=== PATIENT | female | born 1980 | race Hispanic/Latino ===

== ENCOUNTER 2017-01-15 21:44 | Emergency (ER) | payer OTHER ==
[~2017-01-15 21:44] MED LIST: BACTRIM DS TAB1 EACH PO; GEMFIBROZIL600 M1 PO; HAIR, SKIN & N1 EACH PO; OMEGA-3 ACID ETH1 GM PO; PERCOCET 5-3251 EACH PO; VITAMIN D32000 UNI1 PO
[2017-01-15] MEDS ORDERED: LORADAMED10 MG PO (22:09)
[2017-01-15] MEDS ORDERED: NASACORT16.9 ML NASB (22:10)
[2017-01-15] MEDS ORDERED: VITAMIN B-121000 MC3 PO (22:11)
[2017-01-15] MEDS ORDERED: MIRENA1 EACH (22:11)
[2017-01-15 22:33] LABS: ABSOLUTE BASOPHIL COUNT 0.1 /CUMM (0.0-0.2); ABSOLUTE EOSINOPHIL COUNT 0.7 /CUMM (0.0-0.7); ABSOLUTE MONOCYTE COUNT 0.9 /CUMM (0.10-0.60); EOSINOPHIL % 7.6 % (0-5); WHITE BLOOD CELL COUNT 8.9 /CUMM (4.8-10.8)
--- NOTE | 2017-01-15 22:33 | ED GI/GU/ABDOMINAL COMPLAINT ---
History of Present Illness General Chief Complaint: Abdominal Pain/Flank Pain Stated Complaint: L SIDE FLANK PAIN-HX OF KIDNEY STONES Source: patient Exam Limitations: no limitations Vital Signs & Intake/Output Vital Signs & Intake/Output Vital Signs Date Time Temp Pulse Resp B/P Pulse O2 O2 Flow FiO2 Ox Delivery Rate 01/15 2154 97.7 93 22 112/79 98 ED Intake and Output 01/16 0000 01/15 1200 Intake Total 0 Output Total Balance 0 Intake, Oral 0 Allergies Coded Allergies: hydrocodone (From VICODIN) (Severe, ITCHING 03/09/16) Reconcile Medications Cholecalciferol (Vitamin D3) (Vitamin D3) 2,000 UNIT TABLET 1 CAP PO QAM SUPPLEMENT (Reported) Cyanocobalamin (Vitamin B-12) 1,000 MCG TABLET 1 TAB PO DAILY SUPPLEMENT ( Reported) Gemfibrozil 600 MG TABLET 1 TAB PO BID CHOLESTEROL (Reported) Levonorgestrel (Mirena) 20 MCG/24 HOUR (5 YEARS) IUD CONTROL (Reported) Loratadine (Loradamed) 10 MG TABLET 1 TAB PO DAILY ALLERGIES (Reported) Multivitamin With Minerals (Hair, Skin & Nails) 1 EACH TABLET 1 TAB PO QAM SUPPLEMENT (Reported) [place]-3 Acid Ethyl Esters 1 GM CAPSULE 2 CAP PO BID CHOLESTEROL (Reported) Ondansetron (Zofran Odt) 4 MG TAB.RAPDIS 1 TAB SL TID PRN NAUSEA Triamcinolone Acetonide (Nasacort) 55 MCG SPRAY 1 SPRAY NASB DAILY ALLERGIES (Reported) Triage Note: PER PT HAD FEVER YESTERDAY URINE PRESSURE PAIN TO L FLANK, HX OF KIDNEY STONES, THINK I AM PASSING ANOTHER PAIN X 3 DAYS WORSE TODAY. LMP ABNORMAL D/T IUD PLACED IN OCTOBER. Triage Nurses Notes Reviewed? yes ? N Is pt currently ? No HPI: This patient is a 36-year-old female with past medical history including nephrolithiasis who presented to the emergency department today for approximately 3 days of left flank pain. The patient reported that her symptoms started with urinary pressure and a feeling that she needed to urinate, but did not actually have to. The patient denied any blood in the urine, urgency, or burning with urination. She reported that yesterday she had a fever to 100.5F. She reported nausea, but no vomiting. She denied any abdominal pain. The patient reported that her flank pain gets such an 8 out of 10, is throbbing, intermittent, and nonradiating. She denied any groin pain. The patient denies any trauma to the area. (RYLAN DEMARCO PA-C) Past History Travel History Traveled to [place] past 21 day No Medical History Any Pertinent Medical History? see below for history Neurological: NONE EENT: VERTIGO Cardiovascular: hyperlipidemia Respiratory: NONE Gastrointestinal: NONE Hepatic: NONE Renal: KIDNEY STONES Musculoskeletal: NONE Psychiatric: NONE Endocrine: NONE Blood Disorders: NONE Cancer(s): NONE TRADER FIXED INCOME/Reproductive: NONE Surgical History Surgical History: ureteral stent Psychosocial History What is your primary language Kinyarwanda Tobacco Use: Never used Family History Hx Contributory? No (RYLAN DEMARCO PA-C) Review of Systems Review of Systems Constitutional: Reports: see HPI. EENTM: Reports: no symptoms. Respiratory: Reports: no symptoms. Cardiovascular: Reports: no symptoms. GI: Reports: see HPI. Genitourinary: Reports: see HPI. Musculoskeletal: Reports: see HPI. Skin: Reports: no symptoms. Neurological/Psychological: Reports: no symptoms. All Other Systems: Reviewed and Negative (RYLAN DEMARCO PA-C) Physical Exam Physical Exam Gastrointestinal: normal bowel sounds, soft, non-tender, no organomegaly, NO REBOUND OR GUARDING. nO PERITONEAL SIGNS Comments: Well-developed well-nourished person in no acute distress HEENT: Normal EENT exam, head normocephalic, moist mucous membranes Neck: Supple. No lymphadenopathy Back: Normal gait. Normal inspection. No midline tenderness. Left-sided CVA tenderness Cardiovascular: Regular rate and rhythm with no murmurs Respiratory: No respiratory distress. Speaking in full sentences Abdomen: Soft, nontender nondistended, no appreciable organomegaly. Normal bowel sounds. No ascites Extremity: Normal and equal pulses Neuro: Alert oriented x3, motor sensory normal, cranial nerves II through XII grossly intact. Skin: No appreciable rash on exposed skin, skin is warm and dry. Psych: Mood and affect is normal, memory and judgment is normal. Core Measures ACS in differential dx? No Severe Sepsis Present: No Septic Shock Present: No (RYLAN DEMARCO PA-C) Progress Differential Diagnosis: appendicitis, biliary colic, bowel obstruction, colon cancer, cholecystitis, diverticulitis, ectopic , endometritis, gastritis, hepatitis, inflamm bowel dis, intrauterine , kidney stone, pancreatitis, PID/cervicitis, PUD/GERD, threatened AB, UTI/pyelo Plan of Care: Orders Procedure Date/time Status CULTURE,URINE 01/15 2203 Active URINE 01/15 2203 Complete URINALYSIS 01/15 2203 Complete LIPASE 01/15 2203 Complete DIRECT BILIRUBIN 01/15 2203 Complete COMPREHENSIVE METABOLIC PANEL 01/15 2203 Complete CBC WITHOUT DIFFERENTIAL 01/15 2203 Complete AMYLASE 01/15 2203 Complete Laboratory Tests 01/15/172223: Urinalysis HEAVY H, Urine Color STRAW, Urine Clarity CLDY H, Urine pH 7.0, Ur Specific [place] 1.020, Urine Protein NEG, Urine Ketones NEG, Urine Nitrite NEG, Urine Bilirubin NEG, Urine Urobilinogen 0.2, Ur Leukocyte Esterase TRACE H, Ur Microscopic SEDIMENT EXAMINED, Urine WBC RARE, Ur Epithelial Cells FEW, Urine Hemoglobin TRACE-INTACT, Urine Glucose NEG, Urine Test NEGATIVE 01/15/172221: Anion Gap 11, Estimated GFR > 60, BUN/Creatinine Ratio 21.7, Glucose 88, Calcium 10.3 H, Total Bilirubin 0.5, Direct Bilirubin 0.4, AST 20, ALT 35, Alkaline Phosphatase 56, Total Protein 8.0, Albumin 4.5, Globulin 3.5, Albumin/Globulin Ratio 1.3, Amylase 67, Lipase 89, CBC w Diff NO MAN DIFF REQ, RBC 4.55, MCV 83.9 , MCH 28.0, RDW 15.2 H, MPV 9.3, Gran % 64.3, Lymphocytes % 16.7 L, Monocytes % 10.5 H, Eosinophils % 7.6 H, Basophils % 0.9, Absolute Granulocytes 5.7, Absolute Lymphocytes 1.5, Absolute Monocytes 0.9 H, Absolute Eosinophils 0.7, Absolute Basophils 0.1, PUBS MCHC 33.3 Microbiology 01/15 2224 URINE ROUT: Urine Culture - RECD Diagnostic Imaging: Viewed by Me: CT Scan. Discussed w/RAD: CT Scan. Radiology Impression: PATIENT: NEETU CHAMBERS PRESENT AGE: 36 PATIENT ACCOUNT NO: [id number] : 78 LOCATION: [facility] ORDERING PHYSICIAN: RYLAN DEMARCO PA-C SERVICE DATE: 01/15/17 EXAM TYPE: CAT - CT ABD & PELVIS W/O IV CONTRAS EXAMINATION: CT ABDOMEN AND PELVIS WITHOUT CONTRAST CLINICAL INFORMATION: Left-sided flank pain COMPARISON: Abdominal CT March 09, 2016. TECHNIQUE: Multidetector volumetric imaging was performed from the superior aspect of the liver through the pubic symphysis. Sagittal and coronal reformatted images were obtained on the technologist's workstation. FINDINGS: The lung bases are clear. Limited evaluation of the unenhanced liver, spleen, adrenal glands, gallbladder, and pancreas reveals no definite abnormality. The kidneys are symmetric in size without evidence of hydronephrosis or nephrolithiasis. The large and small bowel are normal in caliber without evidence of mechanical obstruction. No focal inflammatory changes adjacent to the large or the small bowel. The appendix is normal. There is no free air and there is no intra-abdominal free fluid. No mesenteric or retroperitoneal adenopathy. The pelvic viscera are normal. There is an IUD in place. No pelvic adenopathy. No free fluid within the pelvis. There are no acute osseous abnormalities. Rectus sheath diastases anteriorly. IMPRESSION: No acute findings. No radiopaque renal, ureteral, or vesicular calculi. No hydroureteronephrosis. DICTATED BY: EUGENIA DENTON MD DATE/TIME DICTATED:2 JAR FILLER:KATE DATE/TIME TRANSCRIBED:01/16/172 CONFIDENTIAL, DO NOT COPY WITHOUT APPROPRIATE AUTHORIZATION. <Electronically signed in Other Vendor System> SIGNED BY: EUGENIA DENTON MD 01/16/17 0012 Initial ED EKG: none (RYLAN DEMARCO PA-C) Departure Departure Disposition: HOME OR SELF CARE Condition: Stable Clinical Impression Primary Impression: Left flank pain Referrals: CASSIE MATA MD (PCP/Family) Additional Instructions: Please rest and stay hydrated. Takes Zofran as prescribed for nausea. Please return for any worsening symptoms or concerns. Follow-up with your primary care physician. Departure Forms: Customer Survey General Discharge Information Prescriptions: Current Visit Scripts Ondansetron (Zofran Odt) 1 TAB SL TID PRN NAUSEA #10 TAB (RYLAN DEMARCO PA-C) PA/PRODUCT MARKETING DIRECTOR Co-Sign Statement Statement: ED Attending supervision documentation- [] I saw and evaluated the patient. I have also reviewed all the pertinent lab results and diagnostic results. I agree with the findings and the plan of care as documented in the PA's/PRODUCT MARKETING DIRECTOR's documentation. [X] I have reviewed the ED Record and agree with the PA's/PRODUCT MARKETING DIRECTOR's documentation. [] Additions or exceptions (if any) to the PAs/PRODUCT MARKETING DIRECTOR's note and plan are summarized below: [] (ZAN ROBERT,MARVIN Mukherjee)
[2017-01-15 22:35] LABS: ABSOLUTE GRANULOCYTE CT 5.7 /CUMM (1.4-6.5); ABSOLUTE LYMPH COUNT 1.5 /CUMM (1.2-3.4); BASOPHIL % 0.9 % (0.0-2.0); GRANULOCYTE % 64.3 % (42.2-75.2); HEMATOCRIT 38.2 % (37-47); MEAN CORPUSCULAR HGB CONC 33.3 G/DL (33.0-37.0); MEAN CORPUSCULAR VOLUME 83.9 FL (81.0-99.0); MEAN PLATELET VOLUME 9.3 FL (7.4-10.4); PLATELET COUNT 253 /CUMM (130-400); RBC DISTRIBUTION WIDTH 15.2 % (11.5-14.5); RED BLOOD CELL CT 4.55 /CUMM (4.20-5.40)
--- NOTE | 2017-01-16 00:12 | CT SCAN REPORT ---
EXAMINATION: CT ABDOMEN AND PELVIS WITHOUT CONTRAST CLINICAL INFORMATION: Left-sided flank pain COMPARISON: Abdominal CT March 09, 2016. TECHNIQUE: Multidetector volumetric imaging was performed from the superior aspect of the liver through the pubic symphysis. Sagittal and coronal reformatted images were obtained on the technologist's workstation. FINDINGS: The lung bases are clear. Limited evaluation of the unenhanced liver, spleen, adrenal glands, gallbladder, and pancreas reveals no definite abnormality. The kidneys are symmetric in size without evidence of hydronephrosis or nephrolithiasis. The large and small bowel are normal in caliber without evidence of mechanical obstruction. No focal inflammatory changes adjacent to the large or the small bowel. The appendix is normal. There is no free air and there is no intra-abdominal free fluid. No mesenteric or retroperitoneal adenopathy. The pelvic viscera are normal. There is an IUD in place. No pelvic adenopathy. No free fluid within the pelvis. There are no acute osseous abnormalities. Rectus sheath diastases anteriorly. IMPRESSION: No acute findings. No radiopaque renal, ureteral, or vesicular calculi. No hydroureteronephrosis.
[2017-01-16] MEDS ORDERED: ZOFRAN ODT4 M1 SL (00:16)
[2017-01-16 00:27] VITALS: BP 108/61
== END 2017-01-16 00:28 ==
LOC: ERH 21:44
PROVIDERS: Physician Assistant
DX: R10.32 Left lower quadrant pain (principal)
CPT/HCPCS: 74176; 81001; 81025; 87086; 96361; 96374; J1885